=== PATIENT | female | born 1995 | race Caucasian/White ===

== ENCOUNTER 2016-10-13 11:21 | Emergency (ER) | payer MEDICAID ==
[~2016-10-13] VITALS: Ht 154.9 cm; Wt 78.0 kg
[2016-10-13 11:30] VITALS: Ht 154.9 cm; Wt 78.0 kg
[2016-10-13] MEDS ORDERED: FAMOTIDINE 20 MG TAB PO ONE (12:30)
[2016-10-13] MEDS ORDERED: ACETAMINOPHEN 325 MG TAB PO ONE (12:30)
--- NOTE | 2016-10-13 12:31 | ERD ---
ER Documentation Chief Complaint Date/Time DATE: 10/13/16 TIME: 12:30 Chief Complaint VB and APx 2 weeks, back pain x 3weeks. HPI 21-year-old female otherwise healthy comes in with vaginal bleeding for 2 weeks with pelvic pain as well as epigastric abdominal pain. Patient states that it started with her normal menstrual cycle however has gone on longer than usual, her usual menses is no more than a week. She has been changing her pads by the hour with clots. She also has pelvic cramping associated. Her abdominal pain is in the epigastric region and radiates outward laterally into her back. She denies fever, chills, nausea, vomiting. Patient denies chest pain or shortness of breath. ROS All systems reviewed and are negative except as per history of present illness. Medications Home Meds Active Scripts Omeprazole* (Omeprazole*) 20 Mg Capsule.dr, 20 MG PO DAILY, #30 Prov:RAJAN LOYD PA-C 10/13/16 Ranitidine Hcl* (Zantac*) 150 Mg Tablet, 150 MG PO BID Y for EPIGASTRIC PAIN, # 30 TAB Prov:RAJAN LOYD PA-C 10/13/16 Medroxyprogesterone Acetate* (Provera*) 5 Mg Tablet, 5 MG PO DAILY for 5 Days, # 5 TAB Prov:RAJAN LOYD PA-C 10/13/16 Allergies Allergies: Coded Allergies: No Known Allergy (Unverified , 10/13/16) PMhx/Soc Medical and Surgical Hx: pt denies Medical Hx, pt denies Surgical Hx History of Surgery: No Anesthesia Reaction: No Hx Neurological Disorder: No Hx Respiratory Disorders: No Hx Cardiac Disorders: No Hx Psychiatric Problems: No Hx Miscellaneous Medical Probl: No Hx Alcohol Use: No Hx Substance Use: No Hx Tobacco Use: No Smoking Status: Never smoker Physical Exam Vitals Vital Signs Date Time Temp Pulse Resp B/P Pulse Ox O2 Delivery O2 Flow Rate FiO2 10/13/16 11:30 97.3 61 16 132/78 97 Physical Exam General: Well-developed, well-nourished. The patient appears in no acute distress. HEENT: Head is normocephalic, atraumatic. No scleral icterus. Neck: Supple. Nontender. Lungs: Clear to auscultation. Normal air movement. Heart: Regular rate and rhythm. S1 and S2 are normal. No murmurs, gallops, or rubs. Abdomen: Soft, epigastric tenderness with palpation, negative Hankins's sign, nondistended. Bowel sounds are normoactive. Suprapubic tenderness. No peritoneal signs, guarding or masses. Extremities: No clubbing or cyanosis. Normal pulses. Moving extremities x 4. No weakness. Neurologic: Alert and oriented 3. No focal deficits. Skin: Normal turgor. No rash or lesions. Result Diagram: 10/13/16 1235 10/13/16 1235 Results 24 hrs Laboratory Tests Test 10/13/16 12:35 Alanine Aminotransferase (ALT/SGPT) 25IU/L Albumin 4.4g/dl Albumin/Globulin Ratio 1.37 Alkaline Phosphatase 86IU/L Anion Gap 17 Aspartate Amino Transf (AST/SGOT) 18IU/L Basophils # 0.010^3/ul Basophils % 0.2% Blood Morphology Comment Blood Urea Nitrogen 17mg/dl Calcium Level 9.7mg/dl Carbon Dioxide Level 27mmol/L Chloride Level 104mmol/L Creatinine 0.83mg/dl Direct Bilirubin 0.00mg/dl Eosinophils # 0.110^3/ul Eosinophils % 1.6% Globulin 3.20g/dl Glucose Level 92mg/dl Hematocrit 42.9% Hemoglobin 14.2g/dl Indirect Bilirubin 0.1mg/dl Lipase 91U/L Lymphocytes # 2.810^3/ul Lymphocytes % 33.9% Mean Corpuscular Hemoglobin 28.5pg Mean Corpuscular Hemoglobin Concent 33.0g/dl Mean Corpuscular Volume 86.3fl Mean Platelet Volume 9.2fl Monocytes # 0.610^3/ul Monocytes % 6.8% Neutrophils # 4.810^3/ul Neutrophils % 57.5% Nucleated Red Blood Cells # 0.010^3/ul Nucleated Red Blood Cells % 0.0/100WBC Platelet Count 73459^3/UL Potassium Level 5.0mmol/L Red Blood Count 4.9710^6/ul Red Cell Distribution Width 14.8% Sodium Level 143mmol/L Total Bilirubin 0.1mg/dl Total Protein 7.6g/dl Urine Bilirubin NEGATIVE Urine Clarity CLEAR Urine Color LT. YELLOW Urine Glucose NEGATIVE% Urine Hemoglobin 3+ Urine Ketones NEGATIVE Urine Leukocyte Esterase NEGATIVE Urine Microscopic RBC 5-10/HPF Urine Microscopic WBC NONE SEEN/HPF Urine Nitrite NEGATIVE Urine Specific [place] 1.020 Urine Squamous Epithelial Cells FEW Urine Total Protein NEGATIVE Urine Urobilinogen 0.2 E.U./dL Urine pH 6.5 White Blood Count 8.410^3/ul Current Medications Medications (Trade) Dose Ordered Sig/Talat Route PRN Reason Start Time Stop Time Status Last Admin Dose Admin Famotidine (Pepcid) 20 mg ONCE ONCE PO 10/13/16 12:30 10/13/16 12:31 DC 10/13/16 12:45 Acetaminophen (Tylenol Tab) 650 mg ONCE ONCE PO 10/13/16 12:30 10/13/16 12:31 DC 10/13/16 12:45 PROCEDURE: US Pelvis. CLINICAL INDICATION: Vaginal bleeding for 2 weeks. TECHNIQUE: Multiple transabdominal and transvaginal sonographic images of the pelvis were obtained. COMPARISON: None. FINDINGS: The uterus is anteverted in position and measures 6.5 x 3.4 x 4.6 cm (54 cc). The endometrial complex is homogeneous in echogenicity and measures 5 mm. The cervix is normal. There is no free pelvic fluid. The right and left ovaries are symmetric in size with Doppler flow. The right ovary measures 2.9 x 1.9 x 1.8 cm (5.4 cc). The left ovary measures 4.0 x 3.0 x 3.7 cm (22 cc). There is a tiny follicle within the right ovary. There is a 3.4 x 2.2 x 3.0 cm cyst of the left ovary with scattered few internal septations. IMPRESSION: Small hemorrhagic cyst of the left ovary. Otherwise, unremarkable pelvic ultrasound. RPTAT: HLST .Nolvia Khan MD, MD Date Time Electronically viewed and signed by .Nolvia Khan MD, on 10/13/2016 13:59 Procedures/MDM ED course: Labs and urine were obtained. Patient was medicated with Pepcid and Tylenol for pain. MDM: 21-year-old female comes to the emergency room epigastric abdominal pain, as well as abnormal vaginal bleeding since her menses 2 weeks ago. Patient's abdominal pain was treated with Pepcid as well as Tylenol she reports significant improvement in her pain. Differentials include gastritis, GERD, ulcer, pancreatitis, acute hepatobiliary process. She does not have any significant white count, transaminitis, no evidence of pancreatitis on laboratory examinations. Pelvic ultrasound does show a left hemorrhagic cyst, her H&H is stable, no evidence of anemia. T given these findings,the patient can safely be managed on an outpatient basis to be followed up with [facility]. Departure Diagnosis: Primary Impression: Multiple complaints Additional Impressions: Abdominal pain Dysfunctional uterine bleeding Condition: RAJAN Vázquez PA-C Oct 13, 2016 12:31
[2016-10-13 12:56] LABS: ADD UMIC YES; BASOPHILS % 0.2 % (0.0-2.0); EOSINOPHILS # 0.1 10^3/ul (0.0-0.5); EOSINOPHILS % 1.6 % (0.0-7.0); HEMATOCRIT 42.9 % (37.0-47.0); HEMOGLOBIN 14.2 g/dl (12.0-16.0); LYMPHOCYTES # 2.8 10^3/ul (0.8-2.9); LYMPHOCYTES % 33.9 % (15.0-51.0); MEAN CORPUSCULAR HEMOGLOBIN 28.5 pg (29.0-33.0); MEAN CORPUSCULAR VOLUME 86.3 fl (82.0-101.0); MEAN PLATELET VOLUME 9.2 fl (7.4-10.4); MONOCYTE # 0.6 10^3/ul (0.3-0.9); MONOCYTES % 6.8 % (0.0-11.0); NEUTROPHIL # 4.8 10^3/ul (1.6-7.5); NEUTROPHILS % 57.5 % (39.0-77.0); PLATELET COUNT 282 10^3/UL (140-440); RED BLOOD COUNT 4.97 10^6/ul (4.20-5.40); RED CELL DISTRIBUTION WIDTH 14.8 % (11.5-14.5); UNCORRECTED WBC 8.4 10^3/ul (4.8-10.8); URINE BILIRUBIN (Dip) NEGATIVE (NEGATIVE); URINE BLOOD (Dip) 3+ (NEGATIVE); URINE COLOR LT. YELLOW (YELLOW); URINE GLUCOSE (Dip) NEGATIVE (NEGATIVE); URINE KETONES (Dip) NEGATIVE (NEGATIVE); URINE LEUKOCYTE ESTERASE (Dip) NEGATIVE (NEGATIVE); URINE NITRITE (Dip) NEGATIVE (NEGATIVE); URINE TOTAL PROTEIN (Dip) NEGATIVE (NEGATIVE); URINE UROBILINOGEN (Dip) 0.2 E.U./dL (0.1-1.0); WHITE BLOOD COUNT 8.4 10^3/ul (4.8-10.8)
[2016-10-13 13:02] LABS: CONDITION 1; LH ANALYZER COMMENTS 1
[2016-10-13 13:04] LABS: ALBUMIN 4.4 g/dl (3.3-4.9)
[2016-10-13 13:06] LABS: SQUAMOUS EPITHELIAL CELL,UR FEW
[2016-10-13 13:07] LABS: ALBUMIN/GLOBULIN RATIO 1.37; BILIRUBIN,INDIRECT 0.1 mg/dl (0-1.1); BILIRUBIN,TOTAL 0.1 mg/dl (0.2-1.3); CREATININE 0.83 mg/dl (0.44-1.00); TOTAL PROTEIN 7.6 g/dl (6.1-8.1)
[2016-10-13 13:08] LABS: CALCIUM 9.7 mg/dl (8.4-10.2)
--- NOTE | 2016-10-13 14:00 | RADRPT ---
PROCEDURE: US Pelvis. CLINICAL INDICATION: Vaginal bleeding for 2 weeks. TECHNIQUE: Multiple transabdominal and transvaginal sonographic images of the pelvis were obtained . COMPARISON: None. FINDINGS: The uterus is anteverted in position and measures 6.5 x 3.4 x 4.6 cm (54 cc). The endometrial compl ex is homogeneous in echogenicity and measures 5 mm. The cervix is normal. There is no free pelvic fluid. The right and left ovaries are symmetric in size with Doppler flow. The right ovary measures 2.9 x 1.9 x 1.8 cm (5.4 cc). The left ovary measures 4.0 x 3.0 x 3.7 cm (22 cc). There is a tiny follicle within the right ovary. There is a 3.4 x 2.2 x 3.0 cm cyst of the left ovary with scattered few in ternal septations. IMPRESSION: Small hemorrhagic cyst of the left ovary. Otherwise, unremarkable pelvic ultrasound. RPTAT: HLST .Nolvia Khan MD, MD Date Time Electronically viewed and signed by .Nolvia Khan MD, MD on 10/13/2016 13:59 .T/
[2016-10-13] MEDS ORDERED: RANI150T9 PO (14:44)
[2016-10-13] MEDS ORDERED: OMEP20CA16 PO (14:44)
[2016-10-13] MEDS ORDERED: MEDR5TAB PO (14:44)
[2016-10-13 14:57] VITALS: BP 126/87; PULSE 63; RESP 16
== END 2016-10-13 15:00 | disposition home or self-care (01) ==
LOC: FTE 11:21
DX: N93.8 Other specified abnormal uterine and vaginal bleeding (principal); R10.13 Epigastric pain; R10.2 Pelvic and perineal pain
CPT/HCPCS: 36415; 76830; 76856; 80053; 81001; 83690; 85025; Z7502; Z7610; 81003

== ENCOUNTER 2019-05-05 11:01 | Emergency (ER) | payer MEDICAID, OTHER ==
[~2019-05-05] VITALS: Ht 160 cm; Wt 68.1 kg
[~2019-05-05 11:01] MED LIST: IBUP-1542 PO; MEDR5TAB PO; OMEP20CA16 PO; RANI150T35 PO
[2019-05-05 11:05] VITALS: Ht 160 cm; Wt 68.1 kg
[2019-05-05] MEDS ORDERED: ACETAMINOPHEN 500 MG TAB PO STA (12:02)
--- NOTE | 2019-05-05 13:02 | ERD ---
ER Documentation Chief Complaint Chief Complaint pelvic pain x 2 weeks, intermittent vag bleed HPI Patient is a 23-year-old female, past medical history of ovarian cyst, presents the ER for concerns of bilateral pelvic pain x2 weeks. Patient states she has had intermittent spotting for the last 2 days. Patient denies any fevers or ch ills. Patient denies any nausea, vomiting, dizziness, lightheadedness or LOC. Patient denies any vaginal discharge. Patient denies any dysuria, urgency, frequency or hematuria. Patient states her menstrual periods are irregular. ROS All systems reviewed and are negative except as per history of present illness. Medications Home Meds Active Scripts Ibuprofen* (Motrin*) 600 Mg Tab, 600 MG PO Q6H PRN for PAIN AND OR ELEVATED TEMP, #30 TAB Prov:HALEIGH PARRA PA-C 05/05/19 Omeprazole* (Omeprazole*) 20 Mg Capsule.dr, 20 MG PO DAILY, #30 Prov:RAJAN LOYD PA-C 10/13/16 Ranitidine Hcl* (Zantac*) 150 Mg Tablet, 150 MG PO BID PRN for EPIGASTRIC PAIN, #30 TAB Prov:RAJAN LOYD PA-C 10/13/16 Medroxyprogesterone Acetate* (Provera*) 5 Mg Tablet, 5 MG PO DAILY for 5 Days, #5 TAB Prov:RAJAN LOYD PA-C 10/13/16 Allergies Allergies: Coded Allergies: No Known Allergy (Unverified , 10/13/16) PMhx/Soc History of Surgery: No Anesthesia Reaction: No Hx Neurological Disorder: No Hx Respiratory Disorders: No Hx Cardiac Disorders: No Hx Psychiatric Problems: No Hx Miscellaneous Medical Probl: No Hx Alcohol Use: No Hx Substance Use: No Hx Tobacco Use: No FmHx Family History: No diabetes Physical Exam Vitals Vital Signs Date Temp Pulse Resp B/P (MAP) Pulse Ox O2 O2 Flow FiO2 Time Delivery Rate 05/05/19 98.0 87 20 141/97 99 11:05 (112) Physical Exam GENERAL: Well-developed, well-nourished female. Appears in no acute distress. HEAD: Normocephalic, atraumatic. EYES: Pupils are equally reactive bilaterally. EOMs grossly intact. No conjunctival erythema. ENT: Moist mucous membranes. No uvula deviation. No kissing tonsils. NECK: Supple. No meningismus. Normal range of motion of the neck. LUNG: Clear to auscultation bilaterally. No rhonchi, wheezing, rales or coarse breath sounds. HEART: Regular rate and rhythm. No murmurs, rubs or gallops. ABDOMEN: No scars, ecchymosis or rashes noted. Soft, and nondistended. Tender to palpation over the suprapubic region. Positive bowel sounds in all four quadrants. No rebound tenderness, no guarding. (-) McBurney's point tenderness. No CVA tenderness. EXTREMITIES: Equal pulses bilaterally. No peripheral clubbing, cyanosis or edema. No unilateral leg swelling. NEUROLOGIC: Alert and oriented. Moving all four extremities without any difficulty. Normal speech. Steady gait. SKIN: Normal color. Warm and dry. No rashes or lesions. Result Diagram: 05/05/19 1247 05/05/19 1247 Results 24 hrs Laboratory Tests Test 05/05/19 12:28 05/05/19 12:47 POC Beta HCG, Qualitative NEGATIVE White Blood Count 8.8 10^3/ul Red Blood Count 4.40 10^6/ul Hemoglobin 12.2 g/dl Hematocrit 38.8 % Mean Corpuscular Volume 88.2 fl Mean Corpuscular Hemoglobin 27.7 pg Mean Corpuscular Hemoglobin Concent 31.4 g/dl Red Cell Distribution Width 15.5 % Platelet Count 284 10^3/UL Mean Platelet Volume 10.3 fl Immature Granulocytes % 0.700 % Neutrophils % 68.8 % Lymphocytes % 21.8 % Monocytes % 7.9 % Eosinophils % 0.5 % Basophils % 0.3 % Nucleated Red Blood Cells % 0.0 /100WBC Immature Granulocytes # 0.060 10^3/ul Neutrophils # 6.1 10^3/ul Lymphocytes # 1.9 10^3/ul Monocytes # 0.7 10^3/ul Eosinophils # 0.0 10^3/ul Basophils # 0.0 10^3/ul Nucleated Red Blood Cells # 0.0 10^3/ul Urine Color YELLOW Urine Clarity CLEAR Urine pH 6.0 Urine Specific [place] 1.014 Urine Ketones NEGATIVE mg/dL Urine Nitrite NEGATIVE mg/dL Urine Bilirubin NEGATIVE mg/dL Urine Urobilinogen NEGATIVE mg/dL Urine Leukocyte Esterase NEGATIVE Stephanie/ul Urine Microscopic RBC 2 /HPF Urine Microscopic WBC 3 /HPF Urine Hemoglobin 1+ mg/dL Urine Glucose NEGATIVE mg/dL Urine Total Protein NEGATIVE mg/dl Sodium Level 144 mmol/L Potassium Level 4.2 mmol/L Chloride Level 108 mmol/L Carbon Dioxide Level 27 mmol/L Anion Gap 9 Blood Urea Nitrogen 15 mg/dl Creatinine 0.97 mg/dl Est Glomerular Filtrat Rate mL/min > 60 mL/min Glucose Level 99 mg/dl Calcium Level 9.6 mg/dl Total Bilirubin 0.3 mg/dl Direct Bilirubin 0.00 mg/dl Indirect Bilirubin 0.3 mg/dl Aspartate Amino Transf (AST/SGOT) 17 IU/L Alanine Aminotransferase (ALT/SGPT) 10 IU/L Alkaline Phosphatase 76 IU/L Total Protein 7.6 g/dl Albumin 4.4 g/dl Globulin 3.20 g/dl Albumin/Globulin Ratio 1.37 Lipase 61 U/L Current Medications Medications Dose Sig/Talat Start Time Status Last (Trade) Ordered Route PRN Stop Time Admin Dose Reason Admin 1,000 mg ONCE STAT 05/05/19 DC 05/05/19 Acetaminophen PO 12:02 12:21 (Tylenol 05/05/19 12:03 Tab) Procedures/MDM MEDICAL DECISION MAKING: Patient is a 23-year-old female, past medical history of ovarian cyst, presents the ER for concerns of bilateral pelvic pain x2 weeks. Patient also reports vaginal spotting for the last 2 days.. Vital signs were reviewed. Patient was afebrile. Urine test was negative. CBC showed no evidence of systemic infection or severe anemia. CMP showed no severe electrolyte abnormalities, acidosis, alkalosis, renal injury or liver failure. UA showed no signs of acute infection. Ultrasound showed concerns of a lef ovarian cyst. Normal blood flow noted. At this time the patient presentation was consistent with ovarian cyst. Low suspicion for ectopic , ovarian torsion, PID, tubo-ovarian abscess, fibroids, endometriosis, vulvovaginitis, uterine prolapse, ovarian cancer, nephrolithiasis, pyelonephritis, UTI, appendicitis, diverticulitis, bowel obstruction, perirectal abscess. Patient was nontoxic, [id number] prior to discharge. PRESCRIPTIONS: Ibuprofen DISCHARGE: At this time, patient is stable for discharge and outpatient management. I have instructed the patient to follow-up with his/her primary care physician in 1-2 days. I have discussed with the patient the possibility of needing to see a specialist for further workup and diagnostic studies if the pain persists. I have instructed the patient to promptly return to the ER at any time for any new or worsening symptoms including increased pain, nausea, vomiting, vaginal bleeding, weakness or fever. The patient and/or family expressed understanding of and agreement with this plan. All questions were answered. Home care instructions were provided. Disclaimer: Inadvertent spelling and grammatical errors are likely due to EHR/di ctation software use and do not reflect on the overall quality of patient care. Also, please note that the electronic time recorded on this note does not necessarily reflect the actual time of the patient encounter. Departure Diagnosis: Primary Impression: Pelvic pain Additional Impression: Ovarian cyst Laterality: left Qualified Codes: N83.202 - Unspecified ovarian cyst, left side Condition: Fair Patient Instructions: Ovarian Cyst Referrals: [facility] YOU HAVE RECEIVED A MEDICAL SCREENING EXAM AND THE RESULTS INDICATE THAT YOU DO NOT HAVE A CONDITION THAT REQUIRES URGENT TREATMENT IN THE EMERGENCY DEPARTMENT. FURTHER EVALUATION AND TREATMENT OF YOUR CONDITION CAN WAIT UNTIL YOU ARE SEEN IN YOUR DOCTORS OFFICE WITHIN THE NEXT 1-2 DAYS. IT IS YOUR RESPONSIBILITY TO MAKE AN APPOINTMENT FOR FOLOW-UP CARE. IF YOU HAVE A PRIMARY DOCTOR --you should call your primary doctor and schedule an appointment IF YOU DO NOT HAVE A PRIMARY DOCTOR YOU CAN CALL OUR PHYSICIAN REFERRAL HOTLINE AT IF YOU CAN NOT AFFORD TO SEE A PHYSICIAN YOU CAN CHOSE FROM THE FOLLOWING [facility] [address] [facility]. [facility] [address] [facility]. [facility] [address] [facility] [address] [facility] [address] [facility]. [facility]. [address] [facility]. [facility] YOU HAVE RECEIVED A MEDICAL SCREENING EXAM AND THE RESULTS INDICATE THAT YOU DO NOT HAVE A CONDITION THAT REQUIRES URGENT TREATMENT IN THE EMERGENCY DEPARTMENT. FURTHER EVALUATION AND TREATMENT OF YOUR CONDITION CAN WAIT UNTIL YOU ARE SEEN IN YOUR DOCTORS OFFICE WITHIN THE NEXT 1-2 DAYS. IT IS YOUR RESPONSIBILITY TO MAKE AN APPOINTMENT FOR FOLOW-UP CARE. IF YOU HAVE A PRIMARY DOCTOR --you should call your primary doctor and schedule and appointment IF YOU DO NOT HAVE A PRIMARY DOCTOR YOU CAN CALL OUR PHYSICIAN REFERRAL HOTLINE AT . IF YOU CAN NOT AFFORD TO SEE A PHYSICIAN YOU CAN CHOSE FROM THE FOLLOWING [facility] INSTITUTIONS: [facility] [address] [place] [address] [facility] [address] [place] [address] [facility] [address] [place] [address] [place] [address] [facility] [address] [place] [address] OFFICE FAX , [facility] [address] [place] [address] [facility] [address] [place] [address] [address] [facility] [facility] [address] [facility], [address] [address] [address] [address] [place] [address] [facility] [address] [place] [address] [phone] [address] [facility] [address] - [address], [facility] [address] [address] [facility]. [address], [facility] [address] [address] [address] [place], [place] [address] Additional Instructions: Call your primary care doctor/ OBGYN TOMORROW for an appointment during the next 1-2 days.See the doctor sooner or return here if your condition worsens before your appointment time. HALEIGH PARRA PA-C May 05, 2019 13:02
[2019-05-05 15:48] VITALS: BP 125/75; PULSE 80; RESP 20
== END 2019-05-05 15:48 | disposition home or self-care (01) ==
LOC: FTE 11:01
DX: N83.202 Unspecified ovarian cyst, left side (principal)
CPT/HCPCS: 36415; 76830; 76856; 80053; 81001; 81025; 83690; 85025; Z7502; Z7610